=== PATIENT | male | born 2000 | race Caucasian/White ===

== ENCOUNTER → 2019-04-17 | Emergency (ER) | payer OTHER ==
[2019-04-17 20:16] VITALS: BP 98/65
--- NOTE | 2019-04-17 20:30 | UC ---
Throat Pain/Nasal Ervin HPI - HPI Summary HPI Summary: 19 yo with one week history of difficulty swallowing, with increasing soreness over the week. Initially associated only with swallowing, but now more uncomfortable all of the time. He has had several episodes of emesis, but now has some dry heaves off and on. Staying well hydrated. No fever, headache. He does not have myalgias. Last week, tapered sertraline, finished it last Monday, and started escitaloprim on 04/15/19. - History of Current Complaint Chief Complaint: UCGeneralIllness Stated Complaint: TROUBLE SWALLOWING Time Seen by Provider: 04/17/19 20:23 Hx Obtained From: Patient Onset/Duration: Gradual Onset, Lasting Days - 6-7 Severity: Mild Pain Intensity: 3 Cough: None Associated Signs & Symptoms: Positive: Dysphagia - Epiglottits Risk Factors Epiglottis Risk Factors: Negative - Allergies/Home Medications Allergies/Adverse Reactions: Allergies Allergy/AdvReac Type Severity Reaction Status Date / Time No Known Allergies Allergy Verified 04/17/19 20:09 Home Medications: Home Medications Escitalopram * [Lexapro 10 mg (NF)] 10 mg PO DAILY 04/17/19 [History Confirmed 04/17/19] PMH/Surg Hx/FS Hx/Imm Hx Previously Healthy: Yes Psychological History: Anxiety, Depression - Surgical History Surgical History: None - Family History Known Family History: Positive: Hypertension - mother - Social History Occupation: Student - [employer] Lives: Dormitory/Roommates Alcohol Use: Occasionally Substance Use Type: None Smoking Status (MU): Never Smoked Tobacco Review of Systems All Other Systems Reviewed And Are Negative: Yes Constitutional: Positive: Negative, Other - no weight loss. Skin: Positive: Negative Eyes: Positive: Negative ENT: Positive: Sore Throat Respiratory: Negative: Shortness Of Breath, Cough Cardiovascular: Negative: Palpitations, Chest Pain Gastrointestinal: Positive: Abdominal Pain - he has recent onset of mild epigastric pain., Nausea - some dry heaves. Genitourinary: Positive: Negative Motor: Positive: Negative Neurovascular: Positive: Negative Musculoskeletal: Positive: Other: - had a sore left rosales post exercise. Neurological/Mental Status: Positive: Negative Psychological: Positive: Anxious, Depressed - mood depressed, seeing Nathan Medellin at . Is Patient Immunocompromised?: No Physical Exam Triage Information Reviewed: Yes Appearance: Thin - looks thin and mildly unwell, anxious demeanor. Vital Signs: Initial Vital Signs Temp 98.8 F 04/17/19 20:10 Pulse 73 04/17/19 20:10 Resp 16 04/17/19 20:10 BP 98/65 04/17/19 20:10 Pulse Ox 98 04/17/19 20:10 Vital Signs Reviewed: Yes Eye Exam: Normal ENT: Positive: Pharyngeal erythema, Other - TM's obscured by wax.. Negative: Tonsillar swelling, Tonsillar exudate Dental Exam: Normal Neck: Positive: Supple, Nontender, No Lymphadenopathy Respiratory: Positive: Lungs clear, Normal breath sounds Cardiovascular: Positive: RRR, No Murmur Abdomen Description: Positive: No Organomegaly, Soft. Negative: Distended, Guarding, Hepatomegaly, Splenomegaly Musculoskeletal Exam: Normal Neurological Exam: Normal Neurological: Positive: Alert, Muscle Tone Normal Psychological Exam: Other - mildly anxious. Skin Exam: Normal Throat Pain/Nasal Course/Dx - Course Course Of Treatment: strep negative. Discussed dysphagia, new onset epigastric discomfort. These symptoms could be related to anxiety and medication transitions. Could have aviral pharyngitis. Possible gi side effects to escitaloprim. Remains hydrated. - Differential Dx/Diagnosis Differential Diagnosis/HQI/PQRI: Pharyngitis, Tonsillitis, Other - dysphagia secondary to reflux. Provider Diagnosis: Dysphagia, Pharyngitis Discharge ED - Sign-Out/Discharge Documenting (check all that apply): Patient Departure All imaging exams completed and their final reports reviewed: No Studies - Discharge Plan Condition: Stable Disposition: HOME Patient Education Materials: Pharyngitis (ED) Referrals: No Primary Care Phys,NOPCP [Primary Care Provider] - Additional Instructions: Your strep test was negative and there are not findings to suggest a bacterial infection. This could be a viral infection, in which case it should resolve with warm drinks, lemon and song, and use of ibuprofen or acetaminophen. It is possible that you are having increased stomach acid as a result of medication changes. You might try Gavison chew tabs or a different antacid to relieve this. It is possible that you have gut side effects from escitaloprim--these usually resolve in 1-2 weeks. You have a follow up with Nathan Lira in 2 weeks. If you are having persistent problems, are aware of weight loss, please arrange an earlier evaluation. - Billing Disposition and Condition Condition: STABLE Disposition: Home
== END | disposition home or self-care (01) ==
LOC: UCEAST 19:58
DX: J02.9 Acute pharyngitis, unspecified (principal); R13.10 Dysphagia, unspecified; F41.9 Anxiety disorder, unspecified; F32.9 Major depressive disorder, single episode, unspecified; Z79.899 Other long term (current) drug therapy
CPT/HCPCS: 87651; 99201; G0463